=== PATIENT | male | born 1955 | race Caucasian/White ===

== ENCOUNTER 2020-05-07 19:54 | Inpatient (IN) | payer OTHER ==
[~2020-05-07] VITALS: Ht 190.5 cm; Wt 79.4 kg
[2020-05-07 20:15] LABS: Chloride (POC) 111 mmol/L (98-108); Creatinine (POC) 0.7 mg/dL (0.8-1.3); Glucose (ISTAT POC) 95 mg/dL (70-99); Hemoglobin (POC) 12.6 g/dL (13.5-17.5); Potassium (POC) 3.3 mmol/L (3.5-5.5); Sodium (POC) 146 mmol/L (135-148); Total CO2 (POC) 24 mmol/L (21-32)
[2020-05-07 20:29] LABS: BASOPHILS ABSOLUTE AUTO 0.01 K/mm3 (0.00-0.23); BASOPHILS PERCENT AUTO 0 % (0-2); EOSINOPHILS ABSOLUTE AUTO 0.01 K/mm3 (0.00-0.68); EOSINOPHILS PERCENT AUTO 0 % (0-6); Hematocrit 37.4 % (37.0-53.0); Hemoglobin 12.2 g/dL (13.5-17.5); IMMATURE GRAN ABSOLUTE AUTO 0.05 K/mm3 (0.00-0.10); IMMATURE GRAN PERCENT AUTO 1 % (0-1); LYMPHOCYTES ABSOLUTE AUTO 0.96 K/mm3 (0.84-5.20); LYMPHOCYTES PERCENT AUTO 14 % (21-46); MONOCYTES ABSOLUTE AUTO 1.03 K/mm3 (0.16-1.47); MONOCYTES PERCENT AUTO 15 % (4-13); Mean Corpuscular HGB 33.7 pg (26.0-34.0); Mean Corpuscular HGB Conc 32.6 g/dL (31.5-36.5); Mean Corpuscular Volume 103 fL (80-100); NEUTROPHILS ABSOLUTE AUTO 4.99 K/mm3 (1.96-9.15); NEUTROPHILS PERCENT AUTO 71 % (41-73); Platelet Count 61 K/mm3 (150-400); RDW Standard Deviation 64.3 fL (35.1-46.3); Red Blood Cell Count 3.62 M/mm3 (4.30-5.90); White Blood Cell Count 7.05 K/mm3 (4.00-11.30)
[2020-05-07 20:42] LABS: International Normalized Ratio 1.45; Prothrombin Time Results 15.2 Sec (9.7-11.5)
[2020-05-07 21:27] LABS: CPK Creatine Kinase 13949 U/L (39-308); Creatine Kinase MB Index 0.2 (0.0-4.0)
[2020-05-07 21:28] LABS: Alanine Aminotransfer (ALT/SGP 98 U/L (12-78); Albumin, Blood 2.8 g/dL (3.4-5.0); Albumin/Globulin Ratio 0.6 (0.8-1.8); Alk Phos 117 U/L (50-136); Anion Gap 10 mmol/L (6-16); Aspartate Aminotrans (AST/SGOT 426 U/L (12-37); Bilirubin, Total 4.4 mg/dL (0.1-1.0); Blood Urea Nitrogen 27 mg/dL (8-24); Bun/Creatinine Ratio 40.7 (12.0-20.0); CO2, Blood 24 mmol/L (21-32); Calcium, Blood 8.2 mg/dL (8.5-10.1); Chloride, Blood 111 mmol/L (98-108); Creatine Kinase MB 32.1 ng/mL (0.0-3.6); Creatinine, Blood 0.66 mg/dL (0.60-1.20); Ethanol (Alcohol), Blood, Med <3 mg/dL; Globulin, Blood 4.8 g/dL (2.2-4.0); Glomerular Filtration Rate >60 (60-); Glucose, Blood 96 mg/dL (70-99); Magnesium, Blood 2.9 mg/dL (1.6-2.4); Potassium, Blood 3.2 mmol/L (3.5-5.5); Sodium, Blood 145 mmol/L (136-145); Total Protein, Blood 7.6 g/dL (6.4-8.2); Troponin I 0.184 ng/mL (0.000-0.040)
[2020-05-07] MEDS ORDERED: Ventolin/Prove6.7 GM INH (21:39)
[2020-05-07 23:36] LABS: Source, Urine Catheter
[2020-05-07 23:38] LABS: Blood, Urine 5+ (Neg); Glucose Qualitative, Urine Neg (Neg); Ketones, Urine 2+ (Neg); Leukocyte Esterase, Urine 1+ (Neg); Nitrite, Urine Neg (Neg); Protein, Urine 1+ (Neg); Urobilinogen, Urine 2+ (Normal)
[2020-05-07 23:40] LABS: Appearance, Urine Clear (Clear); Bilirubin, Urine 1+ (Neg); Color, Urine Amber (P-Yellow)
[2020-05-07 23:44] LABS: White Blood Cells, Urine 0-2 /hpf (0-5)
[2020-05-07 23:45] LABS: Bacteria Mod /hpf; Squamous Epithelial Cells Not Seen /hpf (Few)
[2020-05-07 23:51] LABS: U Amphetamine Screen Not Detected; U Barbituate Screen Not Detected; U Benzodiazapine Screen Not Detected; U Buprenorphine Screen Not Detected; U Cannabinoids Screen Not Detected; U Cocaine Screen Not Detected; U Methadone Screen Not Detected; U Methamphetamine Screen Not Detected; U Opiates Screen Not Detected; U Oxycodone Screen Not Detected; U Phencyclidine Screen Not Detected; U Propoxyphene Screen Not Detected
[2020-05-08 00:17] LABS: Influenza A, PCR NEGATIVE (NEGATIVE); Influenza B, PCR NEGATIVE (NEGATIVE); Resp Syncytial Virus, PCR NEGATIVE (NEGATIVE); SARS-Cov-2 (COVID-19) PCR, MMC NEGATIVE (NEGATIVE)
[2020-05-08 05:43] LABS: BASOPHILS ABSOLUTE AUTO 0.02 K/mm3 (0.00-0.23); BASOPHILS PERCENT AUTO 0 % (0-2); EOSINOPHILS PERCENT AUTO 0 % (0-6); Hematocrit 32.5 % (37.0-53.0); Hemoglobin 10.6 g/dL (13.5-17.5); IMMATURE GRAN ABSOLUTE AUTO 0.01 K/mm3 (0.00-0.10); IMMATURE GRAN PERCENT AUTO 0 % (0-1); LYMPHOCYTES ABSOLUTE AUTO 1.31 K/mm3 (0.84-5.20); LYMPHOCYTES PERCENT AUTO 19 % (21-46); MONOCYTES ABSOLUTE AUTO 1.01 K/mm3 (0.16-1.47); MONOCYTES PERCENT AUTO 15 % (4-13); Mean Corpuscular HGB 33.9 pg (26.0-34.0); Mean Corpuscular HGB Conc 32.6 g/dL (31.5-36.5); Mean Corpuscular Volume 104 fL (80-100); Mean Platelet Volume 11.5 fL (9.1-12.4); NEUTROPHILS ABSOLUTE AUTO 4.41 K/mm3 (1.96-9.15); NEUTROPHILS PERCENT AUTO 65 % (41-73); Platelet Count 51 K/mm3 (150-400); RDW Coefficient Variation 17.1 % (11.7-14.2); RDW Standard Deviation 64.2 fL (35.1-46.3); Red Blood Cell Count 3.13 M/mm3 (4.30-5.90); White Blood Cell Count 6.76 K/mm3 (4.00-11.30)
[2020-05-08 06:11] LABS: Alanine Aminotransfer (ALT/SGP 96 U/L (12-78); Albumin, Blood 2.2 g/dL (3.4-5.0); Albumin/Globulin Ratio 0.5 (0.8-1.8); Alk Phos 96 U/L (50-136); Anion Gap 9 mmol/L (6-16); Aspartate Aminotrans (AST/SGOT 418 U/L (12-37); Bilirubin, Total 3.2 mg/dL (0.1-1.0); Blood Urea Nitrogen 23 mg/dL (8-24); Bun/Creatinine Ratio 38.3 (12.0-20.0); CO2, Blood 21 mmol/L (21-32); Calcium, Blood 8.2 mg/dL (8.5-10.1); Chloride, Blood 118 mmol/L (98-108); Globulin, Blood 4.2 g/dL (2.2-4.0); Glomerular Filtration Rate >60 (60-); Glucose, Blood 84 mg/dL (70-99); Potassium, Blood 3.6 mmol/L (3.5-5.5); Sodium, Blood 148 mmol/L (136-145); Total Protein, Blood 6.4 g/dL (6.4-8.2); Troponin I 0.136 ng/mL (0.000-0.040)
[2020-05-09 05:52] LABS: Alanine Aminotransfer (ALT/SGP 104 U/L (12-78); Albumin, Blood 2.1 g/dL (3.4-5.0); Albumin/Globulin Ratio 0.5 (0.8-1.8); Alk Phos 93 U/L (50-136); Anion Gap 6 mmol/L (6-16); Aspartate Aminotrans (AST/SGOT 336 U/L (12-37); Bilirubin, Total 2.6 mg/dL (0.1-1.0); Blood Urea Nitrogen 16 mg/dL (8-24); Bun/Creatinine Ratio 25.6 (12.0-20.0); CO2, Blood 25 mmol/L (21-32); Calcium, Blood 7.9 mg/dL (8.5-10.1); Chloride, Blood 117 mmol/L (98-108); Creatinine, Blood 0.63 mg/dL (0.60-1.20); Globulin, Blood 4.3 g/dL (2.2-4.0); Glomerular Filtration Rate >60 (60-); Glucose, Blood 99 mg/dL (70-99); Potassium, Blood 3.6 mmol/L (3.5-5.5); Sodium, Blood 148 mmol/L (136-145); Total Protein, Blood 6.4 g/dL (6.4-8.2)
[2020-05-09 06:01] LABS: CPK Creatine Kinase 4174 U/L (39-308)
[2020-05-10 05:12] LABS: Anion Gap 7 mmol/L (6-16); Blood Urea Nitrogen 9 mg/dL (8-24); Bun/Creatinine Ratio 18.4 (12.0-20.0); CO2, Blood 25 mmol/L (21-32); Calcium, Blood 7.6 mg/dL (8.5-10.1); Chloride, Blood 111 mmol/L (98-108); Creatinine, Blood 0.49 mg/dL (0.60-1.20); Glomerular Filtration Rate >60 (60-); Glucose, Blood 104 mg/dL (70-99); Sodium, Blood 143 mmol/L (136-145)
[2020-05-11 05:07] LABS: Anion Gap 5 mmol/L (6-16); Blood Urea Nitrogen 8 mg/dL (8-24); Bun/Creatinine Ratio 14.1 (12.0-20.0); CO2, Blood 26 mmol/L (21-32); Calcium, Blood 7.5 mg/dL (8.5-10.1); Chloride, Blood 109 mmol/L (98-108); Creatinine, Blood 0.57 mg/dL (0.60-1.20); Glomerular Filtration Rate >60 (60-); Glucose, Blood 95 mg/dL (70-99); Potassium, Blood 3.3 mmol/L (3.5-5.5); Sodium, Blood 140 mmol/L (136-145)
[2020-05-12 05:26] LABS: Anion Gap 6 mmol/L (6-16); Blood Urea Nitrogen 11 mg/dL (8-24); Bun/Creatinine Ratio 19.5 (12.0-20.0); CO2, Blood 25 mmol/L (21-32); Calcium, Blood 7.8 mg/dL (8.5-10.1); Chloride, Blood 110 mmol/L (98-108); Creatinine, Blood 0.56 mg/dL (0.60-1.20); Glomerular Filtration Rate >60 (60-); Glucose, Blood 87 mg/dL (70-99); Potassium, Blood 3.9 mmol/L (3.5-5.5); Sodium, Blood 141 mmol/L (136-145)
[2020-05-12] MEDS ORDERED: DIVA500ER PO (11:14)
[2020-05-12] MEDS ORDERED: BUSP10 PO (11:15)
[2020-05-12] MEDS ORDERED: AMLO10 PO (11:17)
[2020-05-12] MEDS ORDERED: ATOR10 PO (11:18)
[2020-05-12] MEDS ORDERED: CODACE30 PO (11:21)
[2020-05-13 05:21] LABS: Anion Gap 5 mmol/L (6-16); Blood Urea Nitrogen 9 mg/dL (8-24); Bun/Creatinine Ratio 16.1 (12.0-20.0); CO2, Blood 25 mmol/L (21-32); Calcium, Blood 7.8 mg/dL (8.5-10.1); Chloride, Blood 109 mmol/L (98-108); Creatinine, Blood 0.56 mg/dL (0.60-1.20); Glomerular Filtration Rate >60 (60-); Glucose, Blood 85 mg/dL (70-99); Potassium, Blood 3.9 mmol/L (3.5-5.5); Sodium, Blood 139 mmol/L (136-145)
[2020-05-13] MEDS ORDERED: ONE DAILY ESS400 MCG PO (11:36)
[2020-05-16 04:53] LABS: Hematocrit 33.1 % (37.0-53.0); Hemoglobin 10.9 g/dL (13.5-17.5); Mean Corpuscular HGB 34.1 pg (26.0-34.0); Mean Corpuscular HGB Conc 32.9 g/dL (31.5-36.5); Mean Corpuscular Volume 103 fL (80-100); Mean Platelet Volume 10.8 fL (9.1-12.4); Platelet Count 114 K/mm3 (150-400); RDW Coefficient Variation 15.9 % (11.7-14.2); RDW Standard Deviation 61.5 fL (35.1-46.3); White Blood Cell Count 5.68 K/mm3 (4.00-11.30)
[2020-05-16 05:09] LABS: Alanine Aminotransfer (ALT/SGP 57 U/L (12-78); Albumin, Blood 1.9 g/dL (3.4-5.0); Albumin/Globulin Ratio 0.4 (0.8-1.8); Alk Phos 146 U/L (50-136); Anion Gap 6 mmol/L (6-16); Aspartate Aminotrans (AST/SGOT 81 U/L (12-37); Bilirubin, Direct 0.9 mg/dL (0.0-0.3); Bilirubin, Indirect 0.5 mg/dL (0.1-0.7); Bilirubin, Total 1.4 mg/dL (0.1-1.0); Blood Urea Nitrogen 9 mg/dL (8-24); CO2, Blood 26 mmol/L (21-32); CPK Creatine Kinase 102 U/L (39-308); Calcium, Blood 8.1 mg/dL (8.5-10.1); Chloride, Blood 107 mmol/L (98-108); Creatinine, Blood 0.53 mg/dL (0.60-1.20); Globulin, Blood 4.3 g/dL (2.2-4.0); Glomerular Filtration Rate >60 (60-); Glucose, Blood 85 mg/dL (70-99); Magnesium, Blood 1.9 mg/dL (1.6-2.4); Phosphorus, Blood 3.2 mg/dL (2.5-4.9); Sodium, Blood 139 mmol/L (136-145); Total Protein, Blood 6.2 g/dL (6.4-8.2)
[2020-05-17 11:18] LABS: Influenza A, PCR Negative (NEGATIVE); Influenza B, PCR Negative (NEGATIVE); Resp Syncytial Virus, PCR Negative (NEGATIVE); SARS-Cov-2 (COVID-19) PCR, MMC Negative (NEGATIVE)
[2020-05-18 10:11] LABS: HBSAG SCREEN Negative (Negative); HEP A AB, IGM Negative (Negative); HEP B CORE AB, IGM Negative (Negative); HEP C VIRUS AB 0.2 (0.0-0.9)
== END 2020-05-17 15:07 | DRG 896 ==
LOC: ER 19:54 → MEDS 19:55 → ENPENDDIS 05-17 10:18 → MEDS 05-17 15:07
PROVIDERS: Emergency Medicine; Internal Medicine; Nurse Practitioner Acute Care; ADMIT Family Medicine
DX: F10.239 Alcohol dependence with withdrawal, unspecified (principal); G92 Toxic encephalopathy; G93.41 Metabolic encephalopathy; I21.A1 Myocardial infarction type 2; J96.01 Acute respiratory failure with hypoxia; E87.0 Hyperosmolality and hypernatremia; E87.1 Hypo-osmolality and hyponatremia; M62.82 Rhabdomyolysis; Z20.822 Contact with and (suspected) exposure to COVID-19; D69.6 Thrombocytopenia, unspecified; E83.51 Hypocalcemia; E86.0 Dehydration; F10.10 Alcohol abuse, uncomplicated; K70.30 Alcoholic cirrhosis of liver without ascites; W18.30XA Fall on same level, unspecified, initial encounter; T17.908A Unspecified foreign body in respiratory tract, part unspecified causing other injury, initial encounter; E87.6 Hypokalemia; F17.290 Nicotine dependence, other tobacco product, uncomplicated
CPT/HCPCS: 0241U; 36415; 70450; 71046; 71260; 72125; 74177; 80047; 80048; 80053; 80074; 81001; 82140; 82248; 82550; 82553; 83605; 83690; 83735; 83880; 84100; 84145; 84295; 84484; 85014; 85025; 85027; 85610; 85730; 86850; 86900; 86901; 87040; 87070; 87077; 87086; 87147; 87186; 87205; 92526; 92610; 93005; 93010; 96361; 96365-59; 96375; 96376; 97110; 97116; 97162; 97530; 99285-25; A9270; G0378; G0480; J0610; J2060; J3411; J3480; J7030; J7042; J7070; J7120; Q9967

== ENCOUNTER 2021-06-20 11:21 | Inpatient (IN) | payer MEDICARE, OTHER ==
[~2021-06-20] VITALS: Ht 182.9 cm; Wt 110.5 kg
[~2021-06-20 11:21] MED LIST: AMLO10 PO; ATOR10 PO; BUSP10 PO; CODACE30 PO; DIVA500ER PO; ONE DAILY ESS400 MCG PO; Ventolin/Prove6.7 GM INH
[2021-06-20 12:12] LABS: BASOPHILS ABSOLUTE AUTO 0.02 K/mm3 (0.00-0.23); BASOPHILS PERCENT AUTO 0 % (0-2); EOSINOPHILS ABSOLUTE AUTO 0.42 K/mm3 (0.00-0.68); EOSINOPHILS PERCENT AUTO 5 % (0-6); Hematocrit 33.1 % (37.0-53.0); Hemoglobin 10.9 g/dL (13.5-17.5); IMMATURE GRAN ABSOLUTE AUTO 0.11 K/mm3 (0.00-0.10); IMMATURE GRAN PERCENT AUTO 1 % (0-1); LYMPHOCYTES ABSOLUTE AUTO 1.64 K/mm3 (0.84-5.20); LYMPHOCYTES PERCENT AUTO 21 % (21-46); MONOCYTES ABSOLUTE AUTO 1.54 K/mm3 (0.16-1.47); MONOCYTES PERCENT AUTO 20 % (4-13); Mean Corpuscular HGB 36.1 pg (26.0-34.0); Mean Corpuscular HGB Conc 32.9 g/dL (31.5-36.5); Mean Corpuscular Volume 110 fL (80-100); Mean Platelet Volume 9.3 fL (9.1-12.4); NEUTROPHILS ABSOLUTE AUTO 4.17 K/mm3 (1.96-9.15); NEUTROPHILS PERCENT AUTO 53 % (41-73); Platelet Count 81 K/mm3 (150-400); RDW Coefficient Variation 18.6 % (11.7-14.2); RDW Standard Deviation 74.5 fL (35.1-46.3); Red Blood Cell Count 3.02 M/mm3 (4.30-5.90)
[2021-06-20 12:23] LABS: Alanine Aminotransfer (ALT/SGP 32 U/L (12-78); Albumin, Blood 1.8 g/dL (3.4-5.0); Albumin/Globulin Ratio 0.4 (0.8-1.8); Alk Phos 94 U/L (50-136); Anion Gap 5 mmol/L (6-16); Aspartate Aminotrans (AST/SGOT 55 U/L (12-37); Bilirubin, Total 5.5 mg/dL (0.1-1.0); Blood Urea Nitrogen 8 mg/dL (8-24); Bun/Creatinine Ratio 15.4 (12.0-20.0); CO2, Blood 24 mmol/L (21-32); Calcium, Blood 8.2 mg/dL (8.5-10.1); Chloride, Blood 106 mmol/L (98-108); Creatinine, Blood 0.52 mg/dL (0.60-1.20); Globulin, Blood 4.9 g/dL (2.2-4.0); Glomerular Filtration Rate >60 (60-); Glucose, Blood 90 mg/dL (70-99); Potassium, Blood 4.5 mmol/L (3.5-5.5); Sodium, Blood 135 mmol/L (136-145); Total Protein, Blood 6.7 g/dL (6.4-8.2)
[2021-06-20 12:59] LABS: International Normalized Ratio 1.94; Prothrombin Time Results 19.5 Sec (9.7-11.5)
[2021-06-20 16:52] LABS: Protein, Body Fluid 1.4 g/dL
[2021-06-20 16:54] LABS: Automated BF WBC Count 0.178 K/mm3 (0-999); Body Fluid WBC Count 178 /mm3 (0-999)
[2021-06-20 17:46] LABS: Color, Body Fluid Yellow (None-Yellow)
--- NOTE | 2021-06-20 17:46 | NUR ---
SHIFT SUMMARY PATIENT ADMITTED FROM ER AT 1635. PATIENT SETTLED INTO ROOM. PATIENT REPORTS PAIN IN LEGS AND SCROTUM. MEDICATED X1. PATIENT DENIES NAUSEA AND SHORTNESS OF BREATH. PATIENT IS UNABLE TO TRANSFER DUE TO EDEMA. PATIENT IS NORMALLY A SBA WITH A FWW. PATIENT HAD A PARACENTESIS IN ER AND HAD 4L REMOVED. PATIENT IS ON TELE. PATIENT IS EATING AND DRINKING WELL. PATIENT IS COOPERATIVE WITH CARE.
[2021-06-20 17:47] LABS: Appearance, Body Fluid Clear (Clear)
[2021-06-20 18:04] LABS: RBC Count, Body Fluid 393 /mm3 (0-0)
[2021-06-20 18:19] LABS: Total Cell Count, Body Fluid 100
[2021-06-21 05:27] LABS: BASOPHILS ABSOLUTE AUTO 0.01 K/mm3 (0.00-0.23); BASOPHILS PERCENT AUTO 0 % (0-2); EOSINOPHILS ABSOLUTE AUTO 0.39 K/mm3 (0.00-0.68); EOSINOPHILS PERCENT AUTO 5 % (0-6); Hematocrit 33.8 % (37.0-53.0); IMMATURE GRAN ABSOLUTE AUTO 0.06 K/mm3 (0.00-0.10); IMMATURE GRAN PERCENT AUTO 1 % (0-1); LYMPHOCYTES ABSOLUTE AUTO 1.21 K/mm3 (0.84-5.20); LYMPHOCYTES PERCENT AUTO 16 % (21-46); MONOCYTES ABSOLUTE AUTO 1.44 K/mm3 (0.16-1.47); MONOCYTES PERCENT AUTO 19 % (4-13); Mean Corpuscular HGB 35.8 pg (26.0-34.0); Mean Corpuscular HGB Conc 32.5 g/dL (31.5-36.5); Mean Corpuscular Volume 110 fL (80-100); Mean Platelet Volume 9.9 fL (9.1-12.4); NEUTROPHILS ABSOLUTE AUTO 4.52 K/mm3 (1.96-9.15); NEUTROPHILS PERCENT AUTO 59 % (41-73); Platelet Count 72 K/mm3 (150-400); RDW Coefficient Variation 18.7 % (11.7-14.2); RDW Standard Deviation 75.7 fL (35.1-46.3); Red Blood Cell Count 3.07 M/mm3 (4.30-5.90); White Blood Cell Count 7.63 K/mm3 (4.00-11.30)
[2021-06-21 05:37] LABS: Alanine Aminotransfer (ALT/SGP 24 U/L (12-78); Albumin, Blood 1.5 g/dL (3.4-5.0); Albumin/Globulin Ratio 0.3 (0.8-1.8); Alk Phos 82 U/L (50-136); Anion Gap 8 mmol/L (6-16); Aspartate Aminotrans (AST/SGOT 51 U/L (12-37); Bilirubin, Total 4.5 mg/dL (0.1-1.0); Blood Urea Nitrogen 10 mg/dL (8-24); Bun/Creatinine Ratio 18.8 (12.0-20.0); CO2, Blood 21 mmol/L (21-32); Calcium, Blood 7.7 mg/dL (8.5-10.1); Chloride, Blood 107 mmol/L (98-108); Creatinine, Blood 0.53 mg/dL (0.60-1.20); Globulin, Blood 4.4 g/dL (2.2-4.0); Glomerular Filtration Rate >60 (60-); Glucose, Blood 116 mg/dL (70-99); Potassium, Blood 3.6 mmol/L (3.5-5.5); Sodium, Blood 136 mmol/L (136-145); Total Protein, Blood 5.9 g/dL (6.4-8.2)
--- NOTE | 2021-06-21 05:47 | NUR ---
PT WAS IRRATABLE LAST NIGHT, JUST WAS NOT HAPPY ABOUT BEING ADMITTED IN THE HOSPITAL. PT IS ALERT AND ORIENTED X4, C/O SOB WHEN LAYING SEMI-FLAT, DENIES N/V AND PAIN. PT RECIEVED LACTULOSE LAST NIGHT AND HAD 4-5 LOOSE BOWEL MOVEMENTS OVERNIGHT. TELE MONITORING NOTED A SLIGHT INCREASE IN QTC INTERVAL AT 0.51 BUT HAS NOT SUSTAINED. NO FURTHER ACUTE EVENTS OVERNIGHT. PT CALL LIGHT WITHIN REACH.
--- NOTE | 2021-06-21 17:55 | NUR ---
YOLI SUMMARY PATIENT MEDICATED FOR PAIN X1. PATIENT DENIES NAUSEA AND SHORTNESS OF BREATH. PATIENT MEDICATED X2 WITH TUMS FOR HEARTBURN. PATIENT COMPLAINS OF 10/10 PAIN MOST OF SHIFT, NOTIFIED. NO NEW ORDERS. PLAN FOR OT AND PT TO WORK WITH PATIENT TOMORROW DUE TO PARACENTESIS THIS AFTERNOON. PATIENT GETS EASILY AGGITATED WITH STAFF. PATIENT HAS BEEN REFUSING CARE. PATIENT IS EATING AND DRINKING WELL. NEW ORDERS FOR FLUID RESTRICTION AT 1800ML FOR TODAY. TOMORROW, 06/22 DECREASE TO 1200ML PER DAY. PATIENT HAD PARACENTESIS TODAY, 8L REMOVED. ALBUMIN ORDERED AND RUNNING. PATIENT YELLING OUT THROUGHOUT THE DAY. PATIENT EDUCATED EDGER SAW OPERATOR LIGHT USE. PATIENT CONTINUED TO YELL OUT.
[2021-06-22 05:35] LABS: BASOPHILS ABSOLUTE AUTO 0.02 K/mm3 (0.00-0.23); BASOPHILS PERCENT AUTO 0 % (0-2); EOSINOPHILS ABSOLUTE AUTO 0.24 K/mm3 (0.00-0.68); EOSINOPHILS PERCENT AUTO 2 % (0-6); Hematocrit 31.3 % (37.0-53.0); Hemoglobin 10.2 g/dL (13.5-17.5); IMMATURE GRAN ABSOLUTE AUTO 0.07 K/mm3 (0.00-0.10); IMMATURE GRAN PERCENT AUTO 1 % (0-1); LYMPHOCYTES ABSOLUTE AUTO 1.54 K/mm3 (0.84-5.20); LYMPHOCYTES PERCENT AUTO 15 % (21-46); MONOCYTES ABSOLUTE AUTO 1.88 K/mm3 (0.16-1.47); MONOCYTES PERCENT AUTO 19 % (4-13); Mean Corpuscular HGB 35.4 pg (26.0-34.0); Mean Corpuscular HGB Conc 32.6 g/dL (31.5-36.5); Mean Corpuscular Volume 109 fL (80-100); Mean Platelet Volume 9.9 fL (9.1-12.4); NEUTROPHILS ABSOLUTE AUTO 6.32 K/mm3 (1.96-9.15); NEUTROPHILS PERCENT AUTO 63 % (41-73); Platelet Count 74 K/mm3 (150-400); RDW Coefficient Variation 18.6 % (11.7-14.2); RDW Standard Deviation 73.6 fL (35.1-46.3); Red Blood Cell Count 2.88 M/mm3 (4.30-5.90); White Blood Cell Count 10.07 K/mm3 (4.00-11.30)
--- NOTE | 2021-06-22 05:35 | NUR ---
TUMS, ZOFRAN AND TORADOL RECIEVED AFTER PT HAD APPROX 200-300MLS BLACK/DARK GREEN EMESIS. HE FINALLY AGREED TO NAUSEA AND PAIN MEDS D/T ABDO DISCOMFORT. TUMS HAD BEEN DROPPED ON THE FLOOR AND WAS REPLACED AT THIS TIME. LINEN AND GOWN CHANGED D/T BEING SOILED W/EMESIS. PT DENIED FURTHER NEEDS. ICE CHIPS TO BE PROVIDED WHEN NAUSEA SUBSIDES.
--- NOTE | 2021-06-22 05:37 | NUR ---
SUMMARY: PT A/OX2-3 AND USES CALL LIGHT APPROPRIATELY BUT WILL SHOUT INTO HALLS WHEN SEEMINGLY IMPATIENT. HE APPEARS FORGETFULL AT TIMES, REQUESTING THINGS REPEATEDLY EVEN AFTER THEY WERE PROVIDED OR NEEDS WERE MET. PT IS MOSTLY PLEASANT AND COOPERATIVE WHEN EXPLANATIONS ARE PROVIDED BUT HE CAN BE IRRITABLE, CONTANKEROUS AND REFUSE MEDS/CARE. HE ASKED FOR TUMS REGULARY FOR GI UPSET BUT REFUSED ZOFRAN AND TORADOL. PT HAD A RECENT EPISODE OF N/V W/DARK GREEN/BLACK LIQUID EMESIS AND ADMITTED TO COUGHING UP PHELGM LEADING TO EMESIS. HE FINALLY AGREED TO PRN MEDS AT THIS TIME, AWAITING EFFECT. PT USED URINAL AND HAD ATTENDS CHANGED PRN FOR INCONTINENCE, CONCENTRATED ORANGE URINE NOTED. LACTULOSE HELD AT HS D/T APPROX 7 BM'S ON DAY SHIFT. BED ALARM ON FOR FALL RISK/DECONDITIONING AND TURN SCHEDULE MAINTAINED TOLERATED. ABDO REMAINS ROUND AND DISTENDED BUT HAS IMPROVED POST PARACENTESIS ON 06/21/21 WHEN 8L WERE REMOVED. HE'S NSR AT 90'S ON TELEMETRY W/VSS/AFEBRILE AND NO ACUTE CHANGES. WCTM AND REPORT TO DAY RN.
[2021-06-22 06:01] LABS: Anion Gap 8 mmol/L (6-16); Blood Urea Nitrogen 17 mg/dL (8-24); Bun/Creatinine Ratio 29.7 (12.0-20.0); CO2, Blood 24 mmol/L (21-32); Calcium, Blood 7.9 mg/dL (8.5-10.1); Chloride, Blood 103 mmol/L (98-108); Creatinine, Blood 0.57 mg/dL (0.60-1.20); Glomerular Filtration Rate >60 (60-); Glucose, Blood 116 mg/dL (70-99); Phosphorus, Blood 3.8 mg/dL (2.5-4.9); Potassium, Blood 3.8 mmol/L (3.5-5.5); Sodium, Blood 135 mmol/L (136-145)
--- NOTE | 2021-06-22 06:28 | NUR ---
ALERTED OF NEW ONSET EMESIS. SHE PLACED NEW ORDERS TO STOP TORADOL, REPEAT HGB AT NOON AND COLLECT EMESIS FOR OCCULT BLOOD.
--- NOTE | 2021-06-22 06:36 | NUR ---
ALERTED OF NEW ONSET EMESIS. SHE PLACED NEW ORDERS TO STOP TORADOL, REPEAT HGB/HCT AT NOON, COMMENCE IV PROTONIX BID AND COLLECT EMESIS FOR OCCULT BLOOD. WILL ENSURE DAY STAFF ARE AWARE.
[2021-06-22 10:38] LABS: Hematocrit 32.9 % (37.0-53.0); Hemoglobin 10.5 g/dL (13.5-17.5)
[2021-06-22 12:59] LABS: Hematocrit 30.3 % (37.0-53.0); Hemoglobin 9.7 g/dL (13.5-17.5)
[2021-06-22 15:02] LABS: Hematocrit 29.9 % (37.0-53.0); Hemoglobin 9.7 g/dL (13.5-17.5)
[2021-06-22 16:34] LABS: Lactate Dehydrogenase, Body Fl 100 U/L
[2021-06-22 16:35] LABS: Triglycerides, Body Fluid 32 mg/dL
[2021-06-22 19:21] LABS: Hematocrit 28.9 % (37.0-53.0); Hemoglobin 9.6 g/dL (13.5-17.5)
[2021-06-22 22:05] LABS: Hematocrit 30.3 % (37.0-53.0); Hemoglobin 9.7 g/dL (13.5-17.5)
[2021-06-23 01:41] LABS: Stool Occult Blood Guaiac 1 Pos (Neg)
--- NOTE | 2021-06-23 03:38 | NUR ---
SHIFT SUMMARY PATIENT HAD OCCULT GUAIAC STOOL SENT TO LAB PER ORDER AND BACK POSITIVE. H&H STAT LAB IS 9.7 AND 30.3 UP FROM PREVIOUS H&H. AXOX 3 AND FORGETFUL, SHOUTING INTO HALLS NOT USING CALL LIGHT. USES URINAL AT BEDSIDE. PIV REMAINS INTACT. CONTRACT ATTORNEY REPORTS ST 105 JUST AFTER ATTENDS CHANGE. LACTULOSE HELD FOR LOOSE STOOLS. FLUID RESTRICTION 1,500. VSS/AFEBRILE. DENIES PAIN, SOB, AND N/V. CALL LIGHT IN REACH. BED IN LOWEST POSITION. WILL CONTINUE TO MONITOR UNTIL DAY SHIFT NURSE ASSUMES CARE.
--- NOTE | 2021-06-23 04:11 | NUR ---
HOSPITALIST DR DUARTE NOTIFIED OF RECENT H&H LAB: 9.7 HgB & 30.3 HCT UP FROM PREVIOUS H&H. ALSO NOTIFIED OF POSITIVE OCCULT GUAIC STOOL. EVENING LACTULOSE HELD FOR LOOSE STOOLS.
[2021-06-23 05:53] LABS: BASOPHILS ABSOLUTE AUTO 0.02 K/mm3 (0.00-0.23); BASOPHILS PERCENT AUTO 0 % (0-2); EOSINOPHILS ABSOLUTE AUTO 0.29 K/mm3 (0.00-0.68); EOSINOPHILS PERCENT AUTO 2 % (0-6); Hematocrit 30.2 % (37.0-53.0); Hemoglobin 9.8 g/dL (13.5-17.5); IMMATURE GRAN ABSOLUTE AUTO 0.11 K/mm3 (0.00-0.10); IMMATURE GRAN PERCENT AUTO 1 % (0-1); LYMPHOCYTES ABSOLUTE AUTO 2.17 K/mm3 (0.84-5.20); LYMPHOCYTES PERCENT AUTO 17 % (21-46); MONOCYTES ABSOLUTE AUTO 2.41 K/mm3 (0.16-1.47); MONOCYTES PERCENT AUTO 19 % (4-13); Mean Corpuscular HGB 35.4 pg (26.0-34.0); Mean Corpuscular HGB Conc 32.5 g/dL (31.5-36.5); Mean Corpuscular Volume 109 fL (80-100); Mean Platelet Volume 10.1 fL (9.1-12.4); NEUTROPHILS ABSOLUTE AUTO 7.97 K/mm3 (1.96-9.15); NEUTROPHILS PERCENT AUTO 62 % (41-73); Platelet Count 88 K/mm3 (150-400); RDW Coefficient Variation 18.6 % (11.7-14.2); RDW Standard Deviation 74.5 fL (35.1-46.3); Red Blood Cell Count 2.77 M/mm3 (4.30-5.90); White Blood Cell Count 12.97 K/mm3 (4.00-11.30)
[2021-06-23 06:06] LABS: Alanine Aminotransfer (ALT/SGP 23 U/L (12-78); Albumin, Blood 1.8 g/dL (3.4-5.0); Albumin/Globulin Ratio 0.5 (0.8-1.8); Alk Phos 65 U/L (50-136); Anion Gap 7 mmol/L (6-16); Aspartate Aminotrans (AST/SGOT 38 U/L (12-37); Bilirubin, Total 5.4 mg/dL (0.1-1.0); Blood Urea Nitrogen 36 mg/dL (8-24); Bun/Creatinine Ratio 41.9 (12.0-20.0); CO2, Blood 26 mmol/L (21-32); Calcium, Blood 7.6 mg/dL (8.5-10.1); Chloride, Blood 106 mmol/L (98-108); Creatinine, Blood 0.86 mg/dL (0.60-1.20); Globulin, Blood 3.6 g/dL (2.2-4.0); Glomerular Filtration Rate >60 (60-); Glucose, Blood 110 mg/dL (70-99); Potassium, Blood 3.4 mmol/L (3.5-5.5); Sodium, Blood 139 mmol/L (136-145); Total Protein, Blood 5.4 g/dL (6.4-8.2)
[2021-06-23 15:38] LABS: Hematocrit 28.3 % (37.0-53.0); Hemoglobin 9.2 g/dL (13.5-17.5)
[2021-06-24 01:12] LABS: BASOPHILS ABSOLUTE AUTO 0.02 K/mm3 (0.00-0.23); BASOPHILS PERCENT AUTO 0 % (0-2); EOSINOPHILS PERCENT AUTO 7 % (0-6); Hematocrit 25.3 % (37.0-53.0); Hemoglobin 8.2 g/dL (13.5-17.5); IMMATURE GRAN ABSOLUTE AUTO 0.11 K/mm3 (0.00-0.10); IMMATURE GRAN PERCENT AUTO 1 % (0-1); LYMPHOCYTES ABSOLUTE AUTO 1.46 K/mm3 (0.84-5.20); LYMPHOCYTES PERCENT AUTO 15 % (21-46); MONOCYTES ABSOLUTE AUTO 2.06 K/mm3 (0.16-1.47); MONOCYTES PERCENT AUTO 21 % (4-13); Mean Corpuscular HGB 35.7 pg (26.0-34.0); Mean Corpuscular HGB Conc 32.4 g/dL (31.5-36.5); Mean Corpuscular Volume 110 fL (80-100); Mean Platelet Volume 9.9 fL (9.1-12.4); NEUTROPHILS ABSOLUTE AUTO 5.42 K/mm3 (1.96-9.15); NEUTROPHILS PERCENT AUTO 56 % (41-73); Platelet Count 80 K/mm3 (150-400); RDW Coefficient Variation 18.6 % (11.7-14.2); RDW Standard Deviation 76.2 fL (35.1-46.3); White Blood Cell Count 9.77 K/mm3 (4.00-11.30)
[2021-06-24 01:28] LABS: Alanine Aminotransfer (ALT/SGP 22 U/L (12-78); Albumin, Blood 1.6 g/dL (3.4-5.0); Albumin/Globulin Ratio 0.5 (0.8-1.8); Alk Phos 54 U/L (50-136); Anion Gap 6 mmol/L (6-16); Aspartate Aminotrans (AST/SGOT 32 U/L (12-37); Bilirubin, Total 3.6 mg/dL (0.1-1.0); Blood Urea Nitrogen 38 mg/dL (8-24); Bun/Creatinine Ratio 39.9 (12.0-20.0); CO2, Blood 27 mmol/L (21-32); Calcium, Blood 7.1 mg/dL (8.5-10.1); Chloride, Blood 106 mmol/L (98-108); Creatinine, Blood 0.95 mg/dL (0.60-1.20); Globulin, Blood 3.5 g/dL (2.2-4.0); Glomerular Filtration Rate >60 (60-); Glucose, Blood 105 mg/dL (70-99); Potassium, Blood 3.8 mmol/L (3.5-5.5); Sodium, Blood 139 mmol/L (136-145); Total Protein, Blood 5.1 g/dL (6.4-8.2)
--- NOTE | 2021-06-24 03:50 | NUR ---
SHIFT SUMMARY PATIENT ANXIOUS T/O SHIFT FOCUSED ON FLUID RESTRICTIONS. AXOX 3 W/CONFUSION NEEDING TO REPEAT HIS RESTRICTIONS. BEDREST. PIV REMAINS INTACT. POTASSIUM 2.9 AT SHIFT CHANGE AND 3.8 AFTER FOUR IV KCL PIGGYBACKS AND X ONE PO 20 MEQ OF POTASSIUM. SANDOSTATIN INFUSING AT 25 mL/HR. DENIES PAIN, SOB, AND N/V. VSS/AFEBRILE. USING CALL LIGHT AFTER JUST BEING IN ROOM AND ASKING QUESTIONS ALREADY ANSWERED. CALL LIGHT IN REACH. BED IN LOWEST POSITION. WILL CONTINUE TO MONITOR UNTIL DAY SHIFT NURSE ASSUMES CARE.
[2021-06-24 06:11] LABS: Hematocrit 24.2 % (37.0-53.0); Hemoglobin 7.8 g/dL (13.5-17.5)
[2021-06-24 09:22] LABS: Hematocrit 24.9 % (37.0-53.0); Hemoglobin 7.9 g/dL (13.5-17.5)
--- NOTE | 2021-06-24 09:55 | NUR ---
TRANSFER TO ICU PT ARRIVED TO ICU 12 VIA BED AT 0840. PT IS ALERT AND ANSWERS SOME QUESTIONS APPROPRIATELY. PT FORGETFUL. PT APPEARS JAUNDICED THROUGHOUT. SEVERE ASCITES NOTED. PT ON ROOM AIR. VITAL SIGNS STABLE AT THIS TIME. SANDOSTATIN INFUSING AT 25 ML/HR. POWERGLIDE TO BERNADETTE PLACED AND PROTONIX GTT STARTED. PT INCONTINENT OF BLACK TARRY STOOL. ATTENDS IN PLACE. DISCUSSED TRANSFER TO ANOTHER HOSPITAL WITH DR LEES FOR GI SERVICES. WILL CONTINUE TO MONITOR.
[2021-06-24 12:05] LABS: International Normalized Ratio 2.32; Prothrombin Time Results 23.1 Sec (9.7-11.5)
[2021-06-24 12:09] LABS: Influenza A, PCR NEGATIVE (NEGATIVE); Influenza B, PCR NEGATIVE (NEGATIVE); Resp Syncytial Virus, PCR NEGATIVE (NEGATIVE); SARS-Cov-2 (COVID-19) PCR, MMC NEGATIVE (NEGATIVE)
[2021-06-24 13:13] LABS: Hematocrit 27.1 % (37.0-53.0); Hemoglobin 8.8 g/dL (13.5-17.5)
--- NOTE | 2021-06-24 15:26 | NUR ---
New referral received. Case conferenced with ICU charge out clerk and left message for , who plans to speak with pt/jose re: tx options. Later was informed that decision had been made for pt to transfer to another facility for GI services not available here.
--- NOTE | 2021-06-24 15:45 | NUR ---
TRANSFER TO [place] PT TO BE TRANSFERED TO [facility] IN [place]. PT AND PT DAUGHTER ISMA AGREEABLE TO TRANSFER. REPORT CALLED TO [facility] [place] AT 1500, ALL QUESTIONS ANSWERED. PT WALLET TAKEN HOME WITH DAUGHTER ISMA, ALL OTHER BELONGINGS SENT WITH PT. PT LEFT ICU ROOM AT 1545 VIA [facility]. PT WITH PROTONIX AND SANDOSTATIN GTT'S INFUSING UPON TRANSFER.
== END 2021-06-24 15:59 | disposition short-term general hospital (02) | DRG 442 ==
LOC: ER 11:21 → MEDS 15:27 → ICUW 15:27 → MEDS 16:45 → ICUW 06-24 08:16
PROVIDERS: Emergency Medicine; Family Medicine; Hospitalist; ADMIT Internal Medicine
PROC: 0W9G3ZZ Drainage of Peritoneal Cavity, Percutaneous Approach (ICD-10-PCS; principal; 2021-06-20)
PROC: HZ2ZZZZ Detoxification Services for Substance Abuse Treatment (ICD-10-PCS; 2021-06-20)
PROC: 0W9G3ZZ Drainage of Peritoneal Cavity, Percutaneous Approach (ICD-10-PCS; 2021-06-21)
DX: K72.00 Acute and subacute hepatic failure without coma (principal); E87.1 Hypo-osmolality and hyponatremia; K92.2 Gastrointestinal hemorrhage, unspecified; K70.31 Alcoholic cirrhosis of liver with ascites; Z20.822 Contact with and (suspected) exposure to COVID-19; Z28.21 Immunization not carried out because of patient refusal; D69.59 Other secondary thrombocytopenia; K21.9 Gastro-esophageal reflux disease without esophagitis; E87.6 Hypokalemia; J45.909 Unspecified asthma, uncomplicated; F17.200 Nicotine dependence, unspecified, uncomplicated; D53.9 Nutritional anemia, unspecified; Z98.890 Other specified postprocedural states; Z88.5 Allergy status to narcotic agent; Z79.899 Other long term (current) drug therapy
CPT/HCPCS: 0241U; 36415; 49083; 71045; 74177; 80053; 80069; 82140; 82270; 83615; 83690; 84132; 84157; 84478; 85014; 85018; 85025; 85610; 85730; 87070; 87205; 89051; 93970; 93975; 94640; 94760; 97161; 97166; 97530; 97535; 99285-25; A9270; C1751; C9113; J0696; J1885; J1940; J2354; J2405; J3480; J7050; P9046; Q9967